=== PATIENT | male | born 2000 | race Caucasian/White ===

== ENCOUNTER 2021-08-23 15:13 | Emergency (ER) | payer SELFPAY ==
[~2021-08-23] VITALS: Ht 172.7 cm; Wt 76.8 kg
[2021-08-23 15:14] VITALS: BP 115/69
== END 2021-08-23 16:40 | disposition left against medical advice (07) ==
LOC: M ED 15:13 → EDBD 15:13 → M ED 16:40
DX: Z53.21 Procedure and treatment not carried out due to patient leaving prior to being seen by health care provider (principal)

== ENCOUNTER 2023-03-06 04:31 | Emergency (ER) | payer OTHER, SELFPAY ==
[~2023-03-06] VITALS: Ht 172.7 cm; Wt 79.0 kg
[2023-03-06] MEDS ORDERED: ACETAMINOPHEN TAB 650MG DOSE (2X325MG) PO ONE (04:55)
[2023-03-06 05:47] LABS: RSV AMPLIFICATION NEGATIVE (NEGATIVE)
[2023-03-06 09:53] LABS: BASO % 0.2 % (0.0-1.0); HEMOGLOBIN 14.1 g/dl (13.5-17.5); LYMPH # 1.2 10^3/uL (1.5-5.0); LYMPH % 4.8 % (24.0-44.0); MEAN CORPUSCULAR HEMOGLOBIN 30.8 pg (27.0-33.0); MEAN CORPUSCULAR HGB CONC 34.4 g/dl (32.0-36.5); MEAN CORPUSCULAR VOLUME 89.5 fl (80.0-96.0); MONO % 10.3 % (2.0-8.0); NEUTROPHILS # 20.7 10^3/uL (1.5-8.5); NEUTROPHILS % 83.6 % (36.0-66.0); PLATELET COUNT, AUTOMATED 226 10^3/uL (150-450); RED BLOOD COUNT 4.58 10^6/uL (4.30-6.10); WHITE BLOOD COUNT 24.8 10^3/uL (4.0-10.0)
[2023-03-06] MEDS ORDERED: KETOROLAC 60MG 2ML VIAL IM ONE (09:55)
[2023-03-06 09:58] LABS: MONO SCRN NEGATIVE (NEGATIVE)
[2023-03-06 10:20] LABS: MONO # 2.6 10^3/uL (0.0-0.8)
[2023-03-06] MEDS ORDERED: cefTRIAXone SOD 1 GM in D5W MINI-BAG PLUS 50 ML IV ONE (10:25)
[2023-03-06] MEDS ORDERED: ISOVUE-370 76% 100ML VIAL As Ordered ONE (11:01)
[2023-03-06] MEDS ORDERED: AZIT500T5 PO (12:07)
[2023-03-06 12:24] VITALS: BP 125/74; TEMP 98.5; O2SAT 100
== END 2023-03-06 12:30 | disposition home or self-care (01) ==
LOC: M ED 04:31
DX: J03.91 Acute recurrent tonsillitis, unspecified (principal); F17.210 Nicotine dependence, cigarettes, uncomplicated; Z88.1 Allergy status to other antibiotic agents; Z91.013 Allergy to seafood
CPT/HCPCS: 70491; 80047; 85025; 86308; 87040; 87631; 87880; 96365; 96372; 99284; J0696; J1885; Q9967

== ENCOUNTER 2023-03-08 22:42 | Emergency (ER) | payer OTHER ==
[~2023-03-08] VITALS: Ht 172.7 cm; Wt 79.0 kg
[~2023-03-08 22:42] MED LIST: AZIT500T5 PO
[2023-03-09] MEDS ORDERED: diphenhydrAMINE 50MG/ML VIAL IV STA (06:15)
[2023-03-09] MEDS ORDERED: FAMOTIDINE IV BAG 20 MG in IV 1 EA IV ONE (06:15)
[2023-03-09] MEDS ORDERED: methylPREDNISolone 125MG 2ML VIAL IV ONE (06:15)
[2023-03-09] MEDS ORDERED: NS 1,000 ML IV ONE (06:15)
[2023-03-09] MEDS ORDERED: FAMO1TAB11 PO (07:09)
[2023-03-09] MEDS ORDERED: PRED20TA PO (07:09)
[2023-03-09] MEDS ORDERED: BENA25CA4 PO (07:09)
[2023-03-09 07:40] VITALS: BP 127/68; TEMP 98.2; O2SAT 100
== END 2023-03-09 07:45 | disposition home or self-care (01) ==
LOC: M ED 22:42
DX: L27.0 Generalized skin eruption due to drugs and medicaments taken internally (principal); L50.9 Urticaria, unspecified; R22.0 Localized swelling, mass and lump, head
CPT/HCPCS: 96361; 96365; 96375; 99284; J1200; J2930; S0028